=== PATIENT | female | born 1995 | race Caucasian/White ===

== ENCOUNTER 2023-02-01 17:24 | Inpatient (IN) | payer BC ==
[~2023-02-01] VITALS: Ht 157.5 cm; Wt 59.9 kg
[2023-02-01] MEDS ORDERED: VANCOMYCIN 1 GM in IV D5W 250 ML IV ONE (18:30)
[2023-02-01] MEDS ORDERED: CEFEPIME 1 GM in IV D5W 50 ML IV ONE (18:30)
[2023-02-01] MEDS ORDERED: IV NS 0.9% 1,000 ML BAG IV ONE (18:30)
[2023-02-01 18:43] LABS: EOSINOPHILS % (AUTO) 0.5 % (0.0-6.0); HEMATOCRIT 40 % (33-45); HEMOGLOBIN 13.7 g/dL (11.5-14.8); LYMPHOCYTES # (AUTO) 1.5 K/uL (0.8-4.8); LYMPHOCYTES % (AUTO) 17.1 % (20.0-44.0); MEAN CORPUSCULAR HEMOGLOBIN 31 PG (26.0-33.0); MEAN CORPUSCULAR HGB CONC 35 g/dl (31.0-36.0); MEAN CORPUSCULAR VOLUME 89 fL (82-100); MONOCYTES # (AUTO) 0.7 K/uL (0.1-1.30); MONOCYTES % (AUTO) 7.6 % (2.0-12.0); NEUTROPHILS # (AUTO) 6.7 K/uL (1.8-8.9); NEUTROPHILS % (AUTO) 74.8 % (43.0-81.0); PLATELET COUNT (AUTO) 384 K/uL (150-450); RED BLOOD CELL COUNT(AUTO) 4.46 MIL/uL (4.0-5.2); RED CELL DISTRIBUTION WIDTH 12.9 % (11.5-15.0); WHITE BLOOD COUNT (AUTO) 8.9 K/uL (4.3-11.0)
[2023-02-01] MEDS ORDERED: ALPR0.5T8 PO (18:46)
[2023-02-01] MEDS ORDERED: VENL150C58 PO (18:46)
[2023-02-01] MEDS ORDERED: DEXT30TA10 PO (18:46)
[2023-02-01] MEDS ORDERED: LAMO150T6 PO (18:46)
[2023-02-01 18:58] LABS: INR 0.97 (0.91-1.10); PARTIAL THROMBOPLASTIN TIME 38.7 SEC (24.3-34.3); PROTHROMBIN TIME 10.3 SECS (9.2-11.1)
[2023-02-01 19:01] LABS: CREATININE 0.6 mg/dL (0.6-1.3); POTASSIUM 3.7 mmol/L (3.5-5.1)
[2023-02-01 19:12] LABS: ALBUMIN 3.9 g/dL (3.4-5.0); BILIRUBIN,DIRECT 0.1 mg/dL (0.0-0.2); TOTAL PROTEIN, SERUM 7.7 g/dL (6.4-8.2)
[2023-02-01 19:13] LABS: LACTIC ACID 0.6 mmol/L (0.4-2.0)
[2023-02-01 19:38] LABS: BILIRUBIN,TOTAL 0.4 mg/dL (0.2-1.0); PREGNANCY TEST SERUM QUAN < 1 mIU/mL (0-6)
[2023-02-01] MEDS ORDERED: ACETAMINOPHEN 325 MG TABLET PO PRN (20:00)
[2023-02-01] MEDS ORDERED: ONDANSETRON HCL/PF 4 MG/2 ML VIAL IVP PRN (20:00)
[2023-02-01] MEDS ORDERED: ALPRAZOLAM 0.5 MG TABLET PO PRN (20:00)
[2023-02-01] MEDS ORDERED: IV NS 0.9% 1,000 ML IV SCH (20:00)
[2023-02-01 20:46] VITALS: BP 102/65; TEMP 98.2; O2SAT 100
[2023-02-01] MEDS ORDERED: CEFEPIME 2 GM in IV D5W 100 ML IV SCH (21:00)
[2023-02-01 21:11] VITALS: BP 102/65; TEMP 98.2; O2SAT 100
[2023-02-01] MEDS: MORPHINE SULFATE INJ 2 MG/ML DISP.SYRIN IV PRN (21:27)
[2023-02-01] MEDS: HEPARIN SODIUM, PORCINE 5000 UNITS/1 ML VIAL SQ SCH (21:30)
[2023-02-01 23:26] LABS: C-REACTIVE PROTEIN 3.3 mg/dL (0.2-0.9)
[2023-02-01 23:31] VITALS: BP 98/68
[2023-02-02] VITALS (7 sets, daily range): BP systolic 106–108; BP diastolic 64–70; TEMP 97.7–98.2; O2SAT 98–100
[2023-02-02] MEDS: MORPHINE SULFATE INJ 2 MG/ML DISP.SYRIN IV PRN ×5 (02:56→23:47)
[2023-02-02] MEDS ORDERED: CEFEPIME 1 GM in IV D5W 50 ML IV ONE (03:00)
[2023-02-02] MEDS ORDERED: CEFEPIME 1 GM VIAL ONE (03:56)
[2023-02-02] MEDS ORDERED: VANCOMYCIN 1 GM in IV D5W 250ml IV ONE (06:30)
[2023-02-02 06:43] LABS: BASOPHILS % (AUTO) 0.1 % (0.0-2.0); EOSINOPHILS # (AUTO) 0.1 K/uL (0.0-0.7); EOSINOPHILS % (AUTO) 0.8 % (0.0-6.0); HEMATOCRIT 35 % (33-45); LYMPHOCYTES % (AUTO) 12.7 % (20.0-44.0); MEAN CORPUSCULAR HEMOGLOBIN 31 PG (26.0-33.0); MEAN CORPUSCULAR HGB CONC 34 g/dl (31.0-36.0); MEAN CORPUSCULAR VOLUME 90 fL (82-100); MONOCYTES # (AUTO) 0.4 K/uL (0.1-1.30); MONOCYTES % (AUTO) 5.5 % (2.0-12.0); NEUTROPHILS # (AUTO) 6.1 K/uL (1.8-8.9); NEUTROPHILS % (AUTO) 80.9 % (43.0-81.0); PLATELET COUNT (AUTO) 330 K/uL (150-450); RED BLOOD CELL COUNT(AUTO) 3.91 MIL/uL (4.0-5.2); RED CELL DISTRIBUTION WIDTH 12.9 % (11.5-15.0); WHITE BLOOD COUNT (AUTO) 7.6 K/uL (4.3-11.0)
[2023-02-02 07:35] LABS: ALBUMIN 2.9 g/dL (3.4-5.0); BILIRUBIN,TOTAL 0.6 mg/dL (0.2-1.0); CALCIUM, SERUM 8.2 mg/dL (8.5-10.1); CREATININE 0.5 mg/dL (0.6-1.3); MAGNESIUM 1.9 mg/dL (1.8-2.4); PHOSPHORUS 3.3 mg/dL (2.5-4.9); POTASSIUM 3.7 mmol/L (3.5-5.1); TOTAL PROTEIN, SERUM 6.1 g/dL (6.4-8.2)
[2023-02-02] MEDS: LamoTRIgine 100 MG TABLET PO SCH (08:18)
[2023-02-02] MEDS: HEPARIN SODIUM, PORCINE 5000 UNITS/1 ML VIAL SQ SCH ×2 (08:19→21:00)
[2023-02-02] MEDS ORDERED: IV NS 0.9% 1,000 ML IV PRN (08:25)
[2023-02-02] MEDS: VENLAFAXINE XR 150 MG CAP.SR.24H PO SCH (09:29)
[2023-02-02] MEDS: DOXYCYCLINE 100 MG in IV D5W 100 ML IV SCH ×2 (09:33→21:05)
[2023-02-02] MEDS: CEFEPIME 2 GM in IV D5W 100 ML IV SCH ×2 (11:32→20:29)
[2023-02-02] MEDS: MUPIROCIN OINT 2% 22 GM TUBE TP SCH ×2 (12:08→21:10)
[2023-02-02] MEDS ORDERED: IV NS 0.9% 250 ML IV ONE (14:02)
[2023-02-02] MEDS ORDERED: IOHEXOL-300 100 ML VIAL IV ONE (14:02)
[2023-02-03] MEDS: MORPHINE SULFATE INJ 2 MG/ML DISP.SYRIN IV PRN ×2 (05:29→10:45)
[2023-02-03 07:00] VITALS: BP 101/57; TEMP 99; O2SAT 99
[2023-02-03] MEDS ORDERED: LIDOCAINE 1%-EPI 1:100,000 20 ML VIAL IJ STA (07:45)
[2023-02-03] MEDS: LamoTRIgine 100 MG TABLET PO SCH (08:59)
[2023-02-03] MEDS: VENLAFAXINE XR 150 MG CAP.SR.24H PO SCH (08:59)
[2023-02-03] MEDS: HEPARIN SODIUM, PORCINE 5000 UNITS/1 ML VIAL SQ SCH (09:05)
[2023-02-03] MEDS: DOXYCYCLINE 100 MG in IV D5W 100 ML IV SCH (09:11)
[2023-02-03] MEDS: CEFEPIME 2 GM in IV D5W 100 ML IV SCH (10:45)
[2023-02-03] MEDS: MUPIROCIN OINT 2% 22 GM TUBE TP SCH (10:59)
[2023-02-03 12:06] LABS: *ANA ANTI-CENTROMERE B AB <0.2 AI (0.0-0.9); *ANA ANTI-DNA(DS) AB, QN <1 IU/mL (0-9); *ANA ANTI-JO-1 <0.2 AI (0.0-0.9); *ANA ANTICHROMATIN ANTIBODY <0.2 AI (0.0-0.9); *ANA RNP ANTIBODIES <0.2 AI (0.0-0.9); *ANA SJOGREN'S ANTI-SS-A <0.2 AI (0.0-0.9); *ANA SJOGREN'S ANTI-SS-B <0.2 AI (0.0-0.9); *ANAANTI-SCLERODERMA-70 AB <0.2 AI (0.0-0.9); *ANASMITH AB <0.2 AI (0.0-0.9)
[2023-02-03] MEDS ORDERED: SULF1TAB48 PO (12:10)
[2023-02-03] MEDS ORDERED: CEPH500C2 PO (12:10)
[2023-02-03] MEDS ORDERED: HYDR-3972 PO (12:10)
[2023-02-03] MEDS ORDERED: ACID1TAB4 PO (12:10)
[2023-02-03] MEDS ORDERED: CEFTRIAXONE 1 G in IV D5W 50 ML IV SCH (12:30)
== END 2023-02-03 13:43 | disposition home or self-care (01) | DRG 603 ==
LOC: ER 17:29 → MED 19:53 → TELE 23:45 → MED 02-02 16:42
PROVIDERS: ADMIT Internal Medicine; ATTEND Nurse Practitioner Acute Care
PROC: 0H9KXZZ Drainage of Right Lower Leg Skin, External Approach (ICD-10-PCS; principal; 2023-02-03)
DX: L03.115 Cellulitis of right lower limb (principal); F90.9 Attention-deficit hyperactivity disorder, unspecified type; F32.A Depression, unspecified; F41.9 Anxiety disorder, unspecified; Z88.1 Allergy status to other antibiotic agents; L03.116 Cellulitis of left lower limb; L02.415 Cutaneous abscess of right lower limb; Z83.2 Family history of diseases of the blood and blood-forming organs and certain disorders involving the immune mechanism
CPT/HCPCS: 36415; 70450-TC; 73564-TC; 73701-TC; 80048-TC; 80053-TC; 80076-TC; 82962-TC; 83605-TC; 83735-TC; 84100-TC; 84702-TC; 85025-TC; 85652-TC; 85730-TC; 86140-TC; 86225; 86235; 87040-TC; A4223; G0378; J0692; J0696; J1644; J2270; J3370; J3490; J7030; J7050; J7060; Q9967